=== PATIENT | male | born 1960 | race African-American/Black ===

== ENCOUNTER 2017-04-08 10:38 | Day surgery (SDC) | payer OTHER ==
[2017-04-05 14:51] VITALS: BMI 24.3
[2017-04-08 11:02] VITALS: PULSE 86
[2017-04-08] MEDS ORDERED: LIDOCAINE HCL/PF 2% SDV 5ML VIAL ONE (11:08)
[2017-04-08] MEDS ORDERED: PROPOFOL 20 ML ONE ×2 (11:08)
[2017-04-08 11:51] VITALS: TEMP 98.2
[2017-04-08 12:24] VITALS: BP 120/82
== END 2017-04-08 12:30 | disposition home or self-care (01) ==
LOC: FASU-ENDO 10:38
PROVIDERS: ATTEND Internal Medicine Gastroenterology
PROC: 0DJD8ZZ Inspection of Lower Intestinal Tract, Via Natural or Artificial Opening Endoscopic (ICD-10-PCS; principal; 2017-04-08 11:22)
DX: Z12.11 Encounter for screening for malignant neoplasm of colon (principal); K64.8 Other hemorrhoids